=== PATIENT | female | born 1975 | race Hispanic/Latino ===

== ENCOUNTER 2024-12-07 11:21 | Emergency (ER) | payer OTHER, SELFPAY ==
--- OUTSIDE RECORDS SUMMARY | 2024-12-07 11:25 | XMS REPORT | Continuity of Care Document ---
Author Name Unknown Address [address] [facility] [address] [place] [address] [facility] thconnect Address [address] [facility] [address] [place] [address] Care Team Providers Care Railroad Passenger Agent Name Role Phone Paco Grimes MD Primary Care Physician [phone] Paco Grimes MD Attending Clinician [phone] PACO GRIMES Attending Clinician Unavailable GC_GCBZW_Kadiyala_S Attending Clinician Unavaila ble GC_GCBZW_Kadiyala_S Admitting Clinician Unavaila ble Payers Payer Name Policy Type Policy Number Effective Date Expirati on Date Source [employer] ACO COMM [id number] 2023 00:00:00 [employer] [id number] 2023 00:00:00 Problems Condition Name Condition Details Condition Category Status Onset Date Resolution Date Last Treatment Date Treating Clinician Comments Source Attention and concentrat ion deficit Attention and concentrat ion deficit Disease Active 07-07 00:00: 00 Fernie Osorio Epic Excessive and frequent menstruati on Excessive and frequent menstruati on Disease Active 07-07 00:00: 00 Memoria eliza Osorio Epic Pure hyperchole sterolemia Pure hyperchole sterolemia Disease Active 07-07 00:00: 00 Memoria eliza Osorio Epic Fatty liver Fatty liver Disease Active 07-07 00:00: 00 Memjenny Osorio Epic Mild episode of recurrent major depressive disorder Mild episode of recurrent major depressive disorder Disease Active 07-07 00:00: 00 Memjenny Osorio Epic Excessive menstruati on with irregular cycle Excessive Menstruati on with Irregular Cycle Problem Active 7-16 00:00: 00 [facility] Menopausal symptom Menopausal Symptom Problem Active 4-09 00:00: 00 [facility] Mass of right breast Mass of Right Breast Problem Active 4-09 00:00: 00 [facility] Abnormal findings on diagnostic imaging of breast Abnormal Findings on Diagnostic Imaging of Breast Problem Active 3-20 00:00: 00 [facility] Inconclusi ve mammograph y finding Inconclusi ve Mammograph y Finding Problem Active 2-21 00:00: 00 [facility] Vitamin D deficiency Vitamin D Deficiency Problem Active 1-25 00:00: 00 [facility] Anxiety Anxiety Problem Active 1-25 00:00: 00 [facility] Anxiety disorder Anxiety Disorder Problem Active 1-25 00:00: 00 [facility] Depressive disorder Depressive Disorder Problem Active 1-25 00:00: 00 [facility] Insomnia Insomnia Problem Active 1-25 00:00: 00 [facility] Menopausal syndrome Menopausal Syndrome Problem Active 1-25 00:00: 00 [facility] Joint pain Joint Pain Problem Active 1-25 00:00: 00 [facility] Fatigue Fatigue Problem Active 1-25 00:00: 00 [facility] Reduced libido Reduced Libido Problem Active 1-25 00:00: 00 [facility] Allergies, Adverse Reactions, Alerts Allergy Name Allergy Type Status Severity Reaction(s) Onset Date Inactive Date Treating Clinician Comments Source NO KNOWN ALLERGIE S SYSTEMIC Active MHEOUT NO KNOWN ALLERGIE S SYSTEMIC Active MHEOUT ALLERGIE S NOT ON FILE SYSTEMIC Active MHEOUT ALLERGIE S NOT ON FILE SYSTEMIC Active MHEOUT NO KNOWN ALLERGIE S SYSTEMIC Active MHEOUT NO KNOWN ALLERGIE S SYSTEMIC Active MHEOUT Social History Social Habit Start Date Stop Date Quantity Comments Source Gender identity 2024-01-11 15:49:04 Identifies as female gender (finding) [facility] [employer] ASSERTION Possible [facility] [employer] Sexual orientation [facility] [employer] Tobacco use and exposure 2024-07-07 00:00:00 2024-07-07 00:00:00 Smokeless tobacco non-user [facility] Alcoholic beverage intake 2024-07-07 00:00:00 2024-07-07 00:00:00 .14 /d [facility] History of Social function 2024-07-07 00:00:00 2024-07-07 00:00:00 [facility] Smoking Status Start Date Stop Date Source Tobacco smoking consumption unknown [facility] Never smoked tobacco [facility] Medications Ordered Medication Name Filled Medication Name Start Date Stop Date Current Medication? Ordering Clinician Indication Dosage Frequency Signature (SIG) Comments Components Source cholecalcif winnie (Vitamin D-3) 1.25 MG (47478 UT) capsule cholecalcif winnie (Vitamin D-3) 1.25 MG (59350 UT) capsule 2023-10 00:00: 00 01-03 23:59 :00 No [id number] 1.25mg Take 1 capsule by mouth 1 time each week. [facility] Vyvanse 60 MG capsule Vyvanse 60 MG capsule 2023-10 00:00: 00 11-03 23:59 :00 No [id number] 60mg Take 1 capsule by mouth every morning. [facility] Vyvanse 60 MG capsule Vyvanse 60 MG capsule 2023-10 00:00: 00 10-04 00:00 :00 No [id number] 60mg Take 1 capsule by mouth every morning. [facility] escitalopra m (Lexapro) 10 MG tablet escitalopra m (Lexapro) 10 MG tablet 2023-10 00:00: 00 11-04 23:59 :00 No [id number] 10mg QD Take 1 tablet by mouth 1 time each day. [facility] Vyvanse 60 MG capsule Vyvanse 60 MG capsule 07-07 00:00: 00 08-19 00:00 :00 No [id number] 60mg Take 1 capsule by mouth every morning. [facility] escitalopra m (Lexapro) 10 MG tablet escitalopra m (Lexapro) 10 MG tablet 07-07 00:00: 00 08-06 00:00 :00 No [id number] 10mg QD Take 1 tablet by mouth 1 time each day. Fernie Porter Vyvanse 60 MG capsule Vyvanse 60 MG capsule 8-06 00:00: 00 07-07 00:00 :00 No [id number] 60mg Take 1 capsule by mouth every morning. Fernie Porter escitalopra m (Lexapro) 10 MG tablet escitalopra m (Lexapro) 10 MG tablet 18 00:00: 00 07-07 00:00 :00 No [id number] 10mg QD Take 1 tablet by mouth 1 time each day. Fernie Porter Vyvanse 60 MG capsule Vyvanse 60 MG capsule 18 00:00: 00 05-25 00:00 :00 No [id number] 60mg Take 1 capsule by mouth every morning. Fernie Porter escitalopra m (Lexapro) 10 MG tablet escitalopra m (Lexapro) 10 MG tablet -14 00:00: 00 04-06 00:00 :00 No [id number] 10mg QD Take 1 tablet by mouth 1 time each day. Fernie Porter cholecalcif winnie (vitamin D3) 1,250 mcg (50,000 unit) capsule Take 1 capsule every week by oral route for 84 days. after prescriptio n runs out start over the counter vitamin D 3 5000 IU daily cholecalcif winnie (vitamin D3) 1,250 mcg (50,000 unit) capsule Take 1 capsule every week by oral route for 84 days. after prescriptio n runs out start over the counter vitamin D 3 5000 IU daily No 1capsul e(s) Q1W cholecalci ferol (vitamin D3) 1,250 mcg (50,000 unit) capsule Take 1 capsule every week by oral route for 84 days. after prescripti on runs out start over the counter vitamin D 3 5000 IU daily [facility] progesteron e micronized 100 mg capsule TAKE 1 CAPSULE BY MOUTH EVERY DAY AT BEDTIME progesteron e micronized 100 mg capsule TAKE 1 CAPSULE BY MOUTH EVERY DAY AT BEDTIME No 1capsul e(s) Q1D progestero ne micronized 100 mg capsule TAKE 1 CAPSULE BY MOUTH EVERY DAY AT BEDTIME [facility] Lyllana 0.1 mg/24 hr transdermal patch APPLY 1 PATCH TOPICALLY TO THE SKIN 2 TIMES A WEEK Lyllana 0.1 mg/24 hr transdermal patch APPLY 1 PATCH TOPICALLY TO THE SKIN 2 TIMES A WEEK No Lyllana 0.1 mg/24 hr transderma l patch APPLY 1 PATCH TOPICALLY TO THE SKIN 2 TIMES A WEEK [facility] Medical Vital Signs Vital Name Observation Time Observation Value Comments [facility] Systolic blood pressure 2024-10-04 08:31:00 120 mm[Hg] [facility] Diastolic blood pressure 2024-10-04 08:31:00 70 mm[Hg] [facility] Heart rate 2024-10-04 08:31:00 72 /min [facility] Body temperature 2024-10-04 08:31:00 36.17 [facility] Body height 2024-10-04 08:31:00 160 [facility] weight 2024-10-04 08:31:00 84.369 kg [facility] BMI 2024-10-04 08:31:00 32.95 kg/m2 [facility] O[facility] saturation in Arterial blood by Pulse oximetry 2024-10-04 08:31:00 98 /min [facility] Systolic blood pressure 2024-10-04 08:31:00 120 mm[Hg] [facility] Diastolic blood pressure 2024-10-04 08:31:00 70 mm[Hg] [facility] Heart rate 2024-10-04 08:31:00 72 /min [facility] Body temperature 2024-10-04 08:31:00 36.17 [facility] Body height 2024-10-04 08:31:00 160 cm [facility] Body weight 2024-10-04 08:31:00 84.369 kg [facility] BMI 2024-10-04 08:31:00 32.95 kg/m2 Ganesh rial [place] [facility] Oxygen saturation in Arterial blood by Pulse oximetry 2024-10-04 08:31:00 98 /min [facility] Systolic blood pressure 2024-07-07 15:38:00 120 mm[Hg] [facility] Diastolic blood pressure 2024-07-07 15:38:00 84 mm[Hg] [facility] Heart rate 2024-07-07 15:38:00 99 /min [facility] Body temperature 2024-07-07 15:38:00 36.22 [facility] Body height 2024-07-07 15:38:00 160 cm Ganesh riaeliza [facility] Body weight 2024-07-07 15:38:00 82.555 kg Ganesh rial [facility] BMI 2024-07-07 15:38:00 32.24 kg/m2 Ganesh rial [facility] Oxygen saturation in Arterial blood by Pulse oximetry 2024-07-07 15:38:00 98 /min [facility] Systolic blood pressure 2024-07-07 15:38:00 120 mm[Hg] [facility] Diastolic blood pressure 2024-07-07 15:38:00 84 mm[Hg] [facility] Heart rate 2024-07-07 15:38:00 99 /min [facility] Body temperature 2024-07-07 15:38:00 36.22 [facility] Body height 2024-07-07 15:38:00 160 [facility] Body weight 2024-07-07 15:38:00 82.555 kg Ganesh rial [facility] BMI 2024-07-07 15:38:00 32.24 kg/m2 Ganesh rial [facility] Oxygen saturation in Arterial blood by Pulse oximetry 2024-07-07 15:38:00 98 /min [facility] Systolic blood pressure 2024-04-06 09:11:00 136 mm[Hg] [facility] Diastolic blood pressure 2024-04-06 09:11:00 80 mm[Hg] [facility] Heart rate 2024-04-06 09:11:00 78 /min [facility] Body temperature 2024-04-06 09:11:00 36.39 [facility] Body height 2024-04-06 09:11:00 160 [facility] Body weight 2024-04-06 09:11:00 82.555 kg Ganesh rial [facility] BMI 2024-04-06 09:11:00 32.24 kg/m2 Ganesh rial [facility] Oxygen saturation in Arterial blood by Pulse oximetry 2024-04-06 09:11:00 98 /min [facility] Systolic blood pressure 2024-04-06 09:11:00 136 mm[Hg] [facility] Diastolic blood pressure 2024-04-06 09:11:00 80 mm[Hg] [facility] Heart rate 2024-04-06 09:11:00 78 /min [facility] Body temperature 2024-04-06 09:11:00 36.39 Ngoc [facility] Body height 2024-04-06 09:11:00 160 cm [facility] Body weight 2024-04-06 09:11:00 82.555 kg [facility] BMI 2024-04-06 09:11:00 32.24 kg/m2 [facility] Oxygen saturation in Arterial blood by Pulse oximetry 2024-04-06 09:11:00 98 /min [facility] Procedures Procedure Date / Time Performed Performing Clinician Source Complete Blood Count (no diff) [facility] Comprehensive Metabolic Panel [facility] TSH [facility] Vitamin D 25-Hydroxy [facility] CBC [facility] Comprehensive metabolic panel [facility] Vitamin D 25 hydroxy [facility] Complete Blood Count (no diff) [facility] Comprehensive Metabolic Panel [facility] Lipid Panel w/calculated LDL [facility] Vitamin D 25-Hydroxy [facility] Encounters Start Date/Time End Date/Time Encounter Type Admission Type Attending Clinicians Care Facility Care Department Encounter ID Source 2024-10-05 00:00:00 2024-12-05 20:33:34 Results Follow-Up Paco Grimes MD, PA 1.2.840.114 350.1.13.70 8.2.7.2.686 [id number] [facility] 2024-10-04 08:28:29 2024-10-04 08:52:40 Out[facility] Elect[id number] 2024-10-04 08:15:00 2024-10-04 08:52:40 Office Visit Paco Grimes MD, PA [id number] 350.1.13.70 8.2.7.2.686 [id number] Fernie Osorio [facility] 2024-07-09 00:00:00 2024-09-08 20:33:32 Results Follow-Up Paco Grimes MD, PA 1.2.840.114 350.1.13.70 8.2.7.2.686 [id number] [facility] 2024-08-19 00:00:00 2024-08-19 12:07:47 Refill Paco Grimes MD, PA [id number] 350.1.13.70 8.2.7.2.686 [id number] Fernie kay [facility] 2024-08-06 00:00:00 2024-08-06 12:04:53 Refill Paco Grimes MD, PA 1.2.840.114 350.1.13.70 8.2.7.2.686 [id number] [facility] 2024-07-07 15:37:28 2024-07-07 16:11:12 Outpatient Elective PACO GRIMES [facility] [id number] [facility] 2024-07-07 15:30:00 2024-07-07 16:11:12 Office Visit Paco Grimes MD, PA [id number] 350.1.13.70 8.2.7.2.686 [id number] [facility] 2024-05-25 00:00:00 2024-05-25 11:34:25 Refill Paco Grimes MD, PA 1.2.840.114 350.1.13.70 8.2.7.2.686 [id number] Fernie kay [facility] 2024-05-04 00:00:00 2024-05-04 00:00:00 JANEE Bergman: [address], [place] [address] , Ph. [facility] - GC_GCBZW_Linda Childs* [id number] [facility] 2024-04-06 09:05:54 2024-04-06 10:05:47 Outpatient Elective PACO GRIMES EOUT [facility] [id number] EOUT 2024-04-06 09:00:00 2024-04-06 10:05:47 Office Visit Paco Grimes MD, PA 1.2.840.114 350.1.13.70 8.2.7.2.686 [id number] [facility] 2024-03-31 00:00:00 2024-04-02 09:56:18 Refill Paco Grimes MD, PA [id number] 350.1.13.70 8.2.7.2.686 [id number] [facility] 2024-03-23 00:00:00 2024-03-23 00:00:00 JANEE Bergman: [address] [id number] , Ph. [facility] - GC_GCBZW_Linda gloria Amadeo* [id number] [facility] 2024-01-18 00:00:00 2024-01-18 00:00:00 Outpatient GC_GCBZW_Ka diyala_S [facility] [id number] [facility] 2023-12-22 00:00:00 2023-12-22 00:00:00 Outpatient GC_GCBZW_Ka diyala_S [facility] [id number] [facility] 2023-12-21 00:00:00 2023-12-21 00:00:00 Outpatient GC_GCBZW_Ka diyala_S PRIV PRIV [id number] [facility] 2023-11-14 00:00:00 2023-11-14 00:00:00 Outpatient GC_GCBZW_Ka diyala_S PRIV PRIV [id number] [facility] 2023-11-13 00:00:00 2023-11-13 00:00:00 Outpatient GC_GCBZW_Ka diyala_S [facility] [id number] [facility] 2023-11-12 00:00:00 2023-11-12 00:00:00 Outpatient [facility] [id number] [facility] Medical Notes Date/Time Note Provider Source [facility]63 20:43:37 [facility] HospitalCzukuet9193-45-69 19:09:25* [facility] HospitalZpdmblk3564-36-17 19:09:25* Naz Perez MA - 10/04/2024 8:15 AM PLASTER MACHINE OPERATOR Follow-up medical issues, medication refills , labs if needed TER MACHINE OPERATOR * Paco Grimes MD - 10/04/2024 8:15 AM PLASTER MACHINE OPERATOR Subjective Patient ID: Jenni Ordoeñz is a 49 y.o. female who presents for Follow-up and Med Refill. HPI: Here for a followup on her medical issues- Anxiety-takes the meds and doing ok. Vit D def-takes the meds and has good energy. ADD-continues to have issues with this and she has been doing well with the Vyvanse. Doing ok otherwise and has no new issues. Going through menopause now as per her ObGyn MD. Review of Systems Constitutional: Negative. HENT: Negative. Eyes: Negative. Respiratory: Negative. Cardiovascular: Negative. Gastrointestinal: Negative. Endocrine: Negative. Genitourinary: Negative. Musculoskeletal: Negative. Skin: Negative. Allergic/Immunologic: Negative. Neurological: Negative. Hematological: Negative. Psychiatric/Behavioral: Negative. Objective Physical Exam: Vitals and nursing note reviewed. Constitutional: Appearance: Normal appearance. HENT: Head: Normocephalic. Right Ear: Tympanic membrane normal. Left Ear: Tympanic membrane normal. Mouth/Throat: Mouth: Mucous membranes are moist. Eyes: Extraocular Movements: Extraocular movements intact. Pupils: Pupils are equal, round, and reactive to light. Cardiovascular: Rate and Rhythm: Normal rate and regular rhythm. Pulses: Normal pulses. Heart sounds: Normal heart sounds. Pulmonary: Effort: Pulmonary effort is normal. Breath sounds: Normal breath sounds. Abdominal: General: Abdomen is flat. Palpations: Abdomen is soft. Musculoskeletal: General: Normal range of motion. Cervical back: Normal range of motion. Skin: General: Skin is warm. Neurological: General: No focal deficit present. Mental Status: She is alert and oriented to person, place, and time. Psychiatric: Mood and Affect: Mood normal. Behavior: Behavior normal. Assessment & Plan Pure hypercholesterolemia Low chol diet and take meds Orders: Complete Blood Count (no diff) Comprehensive Metabolic Panel Vitamin D deficiency Take meds Orders: Vitamin D 25-Hydroxy Fatty liver Check labs Mild episode of recurrent major depressive disorder (HCC) Continue lexapro Attention deficit hyperactivity disorder (ADHD), predominantly inattentive type Orders:Vyvanse 60 MG capsule; Take 1 capsule by mouth every morning. Other fatigue Orders:Complete Blood Count (no diff) Comprehensive Metabolic Panel TSH As the patient's primary care provider we will add G2211 as an additional CPT code to account for the long-term, comprehensive, longitudinal care of complex medical conditions addressed during this visit and requiring review of historical medical records including, but not limited to, specialist records, laboratory testing, imaging, and coordination of care with specialists. [facility]2024-12-16 19:09:25Scheduled Orders Health Maintenance Due Date Last Done Comments CT Colonography 1975 Colonoscopy 1975 Colorectal Cancer Screening 1975 FIT-DNA 1975 FIT 1975 FOBT 1975 Sigmoidoscopy 1975 DTaP/Tdap/Td Vaccines (1 - Tdap) 1994 Hepatitis A Vaccines (1 of 2 - Risk 2-dose series) 1994 Hepatitis B Vaccines (1 of 3 - 19+ 3-dose series) 1994 Pap Smear 1996 Cervical Cancer Screening 2005 HPV/Cotest 2005 Mammogram 2015 Influenza Vaccine (#1) 2024 Annual Physical 11/13/2024 11/13/2023 HIB Vaccines Aged Out No longer eligi ble based on patient's age to complete this topic HPV Vaccines Aged Out No longer eligi ble based on patient's age to complete this topic IPV Vaccines Aged Out No longer eligi ble based on patient's age to complete this topic Meningococcal Vaccine Aged Out No binh terrence eligible based on patient's age to complete this topic Pneumococcal Vaccine: Pediat rics (0 to 5 Years) and At-Risk Patients (6 to 64 Years) Aged Out No longer eligible b ased on patient's age to complete this topic Rotavirus Vaccines Aged Out No longer eligible based on patient's age to complete this topic [facility] HospitalYzcxwdz2784-02-73 19:09:25 Diagnosis Pure hypercholesterolemia - Primary Vitamin D deficiency Fatty liver Other chronic nonalcoholic liver disease Mild episode of recurrent ma andrea depressive disorder (HCC) Attention deficit hyperactiv ity disorder (ADHD), predominantly inattentive type Other fatigue [facility] HospitalDolzfbi6976-30-93 19:09:25 [facility] HospitalQeuxuil4356-01-04 20:45:30 [facility] HospitalBfyocym4971-86-40 20:45:30 [facility] HospitalYbfkoap5014-38-87 12:07:53 [facility] HospitalIrtujpl1795-40-77 12:07:53 Diagnosis Attention deficit hyperactiv ity disorder (ADHD), predominantly inattentive type [facility] HospitalJpnwhal1232-24-28 12:07:53 [facility] HospitalUnsohga2149-57-40 12:05:00 [facility] HospitalWsmdzer7676-77-84 12:05:00 Diagnosis Moderate episode of recurren t major depressive disorder (HCC) Anxiety Anxiety state, unspecified [facility] HospitalVwfcebd9632-21-36 12:05:00 [facility] [id number] 19:28:50* Josep [id number] 19:28:50* Naz Perez MA - 07/07/2024 3:30 PM CDT Follow-up medical issues, medication refills , labs if needed * Paco Grimes MD - 07/07/2024 3:30 PM CDT Subjective Patient ID: Jenni Ordoñez is a 49 y.o. female who presents for Follow-up and Med Refill. HPI: Here for a followup on her medical issues- Anxiety-takes the meds and doing ok. Vit D def-takes the meds and has good energy. ADD-continues to have issues with this and she has been doing well with the Vyvanse. Doing ok otherwise and has no new issues. Going through menopause now as per her ObGyn MD. Review of Systems Constitutional: Negative. HENT: Negative. Eyes: Negative. Respiratory: Negative. Cardiovascular: Negative. Gastrointestinal: Negative. Endocrine: Negative. Genitourinary: Negative. Musculoskeletal: Negative. Skin: Negative. Allergic/Immunologic: Negative. Neurological: Negative. Hematological: Negative. Psychiatric/Behavioral: Negative. Objective Physical Exam: Vitals and nursing note reviewed. Constitutional: Appearance: Normal appearance. HENT: Head: Normocephalic. Right Ear: Tympanic membrane normal. Left Ear: Tympanic membrane normal. Mouth/Throat: Mouth: Mucous membranes are moist. Eyes: Extraocular Movements: Extraocular movements intact. Pupils: Pupils are equal, round, and reactive to light. Cardiovascular: Rate and Rhythm: Normal rate and regular rhythm. Pulses: Normal pulses. Heart sounds: Normal heart sounds. Pulmonary: Effort: Pulmonary effort is normal. Breath sounds: Normal breath sounds. Abdominal: General: Abdomen is flat. Palpations: Abdomen is soft. Musculoskeletal: General: Normal range of motion. Cervical back: Normal range of motion. Skin: General: Skin is warm. Neurological: General: No focal deficit present. Mental Status: She is alert and oriented to person, place, and time. Psychiatric: Mood and Affect: Mood normal. Behavior: Behavior normal. Assessment & Plan Pure hypercholesterolemia Orders: Lipid Panel w/calculated LDL Excessive and frequent menstruation Continue present plan and see the ObGyn Fatty liver Lose weight Vitamin D deficiency Orders:Vitamin D 25-Hydroxy Attention deficit hyperactivity disorder (ADHD), predominantly inattentive type Orders:Complete Blood Count (no diff) Comprehensive Metabolic Panel Vyvanse 60 MG capsule; Take 1 capsule by mouth every morning. Moderate episode of recurrent major depressive disorder (HCC) Orders:escitalopram (Lexapro) 10 MG tablet; Take 1 tablet by mouth 1 time each day. Anxiety Orders:escitalopram (Lexapro) 10 MG tablet; Take 1 tablet by mouth 1 time each day. [facility] HospitalAchfcbj6845-00-19 19:28:50Scheduled Orders Health Maintenance Due Date Last Done Comments CT Colonography 1975 Colonoscopy 1975 Colorectal Cancer Screening 1975 FIT-DNA 1975 FIT 1975 FOBT 1975 Sigmoidoscopy 1975 DTaP/Tdap/Td Vaccines (1 - Tdap) 1994 Hepatitis A Vaccines (1 of 2 - Risk 2-dose series) 1994 Hepatitis B Vaccines (1 of 3 - 19+ 3-dose series) 1994 Pap Smear 1996 Cervical Cancer Screening 2005 HPV/Cotest 2005 Mammogram 2015 Influenza Vaccine (#1) 2024 HIB Vaccines Aged Out No longer eligi ble based on patient's age to complete this topic HPV Vaccines Aged Out No longer eligi ble based on patient's age to complete this topic IPV Vaccines Aged Out No longer eligi ble based on patient's age to complete this topic Meningococcal Vaccine Aged Out No binh terrence eligible based on patient's age to complete this topic Pneumococcal Vaccine: Pediat rics (0 to 5 Years) and At-Risk Patients (6 to 64 Years) Aged Out No longer eligible b ased on patient's age to complete this topic Rotavirus Vaccines Aged Out No longer eligible based on patient's age to complete this topic [id number] 19:28:50 Diagnosis Pure hypercholesterolemia - Primary Excessive and frequent menstruation Excessive or frequent menstruation Fatty liver Other chronic nonalcoholic liver disease Mild episode of recurrent ma andrea depressive disorder (HCC) Vitamin D deficiency Attention deficit hyperactiv ity disorder (ADHD), predominantly inattentive type Moderate episode of recurren t major depressive disorder (HCC) Anxiety Anxiety state, unspecified [id number] 19:28:50 [place] [id number] 11:34:32 [place] [id number] 11:34:32 Diagnosis Attention deficit hyperactiv ity disorder (ADHD), predominantly inattentive type [facility] HospitalShwuyir1185-45-09 11:34:32 [facility] [id number] 20:30:26* [facility] [id number] 20:30:26* Naz Perez MA - 04/06/2024 9:00 AM CDT Follow-up medical issues, medication refills , labs if needed * Paco Grimes MD - 04/06/2024 9:00 AM CDT Subjective Patient ID: Jenni Ordoñez is a 49 y.o. female who presents for Follow-up (Medical issues ) and Med Refill (Labs ). HPI Here for a followup on her medical issues- Anxiety-takes the meds and doing ok. Vit D def-takes the meds and has good energy. ADD-continues to have issues with this and she has been doing well with the Vyvanse. Doing ok otherwise and has no new issues. Going through menopause now as per her ObGyn MD. Review of Systems Constitutional: Negative. HENT: Negative. Eyes: Negative. Respiratory: Negative. Cardiovascular: Negative. Gastrointestinal: Negative. Endocrine: Negative. Genitourinary: Negative. Musculoskeletal: Negative. Skin: Negative. Allergic/Immunologic: Negative. Neurological: Negative. Hematological: Negative. Psychiatric/Behavioral: Negative. Objective Physical Exam Vitals and nursing note reviewed. Constitutional: Appearance: Normal appearance. HENT: Head: Normocephalic. Right Ear: Tympanic membrane normal. Left Ear: Tympanic membrane normal. Mouth/Throat: Mouth: Mucous membranes are moist. Eyes: Extraocular Movements: Extraocular movements intact. Pupils: Pupils are equal, round, and reactive to light. Cardiovascular: Rate and Rhythm: Normal rate and regular rhythm. Pulses: Normal pulses. Heart sounds: Normal heart sounds. Pulmonary: Effort: Pulmonary effort is normal. Breath sounds: Normal breath sounds. Abdominal: General: Abdomen is flat. Palpations: Abdomen is soft. Musculoskeletal: General: Normal range of motion. Cervical back: Normal range of motion. Skin: General: Skin is warm. Neurological: General: No focal deficit present. Mental Status: She is alert and oriented to person, place, and time. Psychiatric: Mood and Affect: Mood normal. Behavior: Behavior normal. Assessment & Plan Attention deficit hyperactivity disorder (ADHD), predominantly inattentive type Orders: CBC Comprehensive metabolic panel Vyvanse 60 MG capsule; Take 1 capsule by mouth every morning. Moderate episode of recurrent major depressive disorder (HCC) Orders: CBC Comprehensive metabolic panel escitalopram (Lexapro) 10 MG tablet; Take 1 tablet by mouth 1 time each day. Vitamin D deficiency Orders: Vitamin D 25 hydroxy [facility] [id number] 20:30:26Scheduled Orders Health Maintenance Due Date Last Done Comments CT Colonography 1975 Colonoscopy 1975 Colorectal Cancer Screening 1975 FIT-DNA 1975 FIT 1975 FOBT 1975 Sigmoidoscopy 1975 DTaP/Tdap/Td Vaccines (1 - Tdap) 1994 Hepatitis A Vaccines (1 of 2 - Risk 2-dose series) 1994 Hepatitis B Vaccines (1 of 3 - 19+ 3-dose series) 1994 Pap Smear 1996 Cervical Cancer Screening 2005 HPV/Cotest 2005 Mammogram 2015 Influenza Vaccine (Season Ended) 2024 Respiratory Syncytial Virus (RSV) or >=60 (1 - 1-dose 60+ series) 2035 HIB Vaccines Aged Out No longer eligi ble based on patient's age to complete this topic HPV Vaccines Aged Out No longer eligi ble based on patient's age to complete this topic IPV Vaccines Aged Out No longer eligi ble based on patient's age to complete this topic Meningococcal Vaccine Aged Out No binh terrence eligible based on patient's age to complete this topic Pneumococcal Vaccine: Pediat rics (0 to 5 Years) and At-Risk Patients (6 to 64 Years) Aged Out No longer eligible b ased on patient's age to complete this topic Rotavirus Vaccines Aged Out No longer eligible based on patient's age to complete this topic [facility] [id number] 20:30:26 Diagnosis Attention deficit hyperactiv ity disorder (ADHD), predominantly inattentive type - Primary Moderate episode of recurren t major depressive disorder (HCC) Vitamin D deficiency Anxiety Anxiety state, unspecified [facility] [id number] 20:30:26 [facility] HospitalJmzjhus1282-64-75 09:56:28* [facility] [id number] 09:56:28Upcoming Encounters Health Maintenance Due Date Last Done Comments CT Colonography 1975 Colonoscopy 1975 Colorectal Cancer Screening 1975 FIT-DNA 1975 FIT 1975 FOBT 1975 Sigmoidoscopy 1975 DTaP/Tdap/Td Vaccines (1 - Tdap) 1994 Hepatitis A Vaccines (1 of 2 - Risk 2-dose series) 1994 Hepatitis B Vaccines (1 of 3 - 19+ 3-dose series) 1994 Pap Smear 1996 Cervical Cancer Screening 2005 HPV/Cotest 2005 Mammogram 2015 Influenza Vaccine (Season Ended) 2024 Respiratory Syncytial Virus (RSV) or >=60 (1 - 1-dose 60+ series) 2035 HIB Vaccines Aged Out No longer eligi ble based on patient's age to complete this topic HPV Vaccines Aged Out No longer eligi ble based on patient's age to complete this topic IPV Vaccines Aged Out No longer eligi ble based on patient's age to complete this topic Meningococcal Vaccine Aged Out No binh terrence eligible based on patient's age to complete this topic Pneumococcal Vaccine: Pediat rics (0 to 5 Years) and At-Risk Patients (6 to 64 Years) Aged Out No longer eligible b ased on patient's age to complete this topic Rotavirus Vaccines Aged Out No longer eligible based on patient's age to complete this topic [facility] HospitalPwjnatp6401-74-71 09:56:28 Diagnosis Anxiety - Primary Anxiety state, unspecified [facility] HospitalEcdjplg0010-13-64 11:10:52 She has an appt will do then [facility]
[2024-12-07] MEDS ORDERED: HYDROMORPHONE HCL 1 MG/ML INJ ONE ×2 (11:55→14:18)
[2024-12-07] MEDS ORDERED: ONDANSETRON 4 MG/2 ML VIAL ONE (11:55)
[2024-12-07] MEDS ORDERED: NA CHLORIDE 0.9% 1,000 ML ONE (11:55)
[2024-12-07 12:14] LABS: Absolute Lymphocytes (CBC) 1.7 K/uL (0.7-4.9); Absolute Neutrophil 11.5 K/uL (1.8-8.0); Basophils % 0.2 % (0-1.3); Eosinophils % 0.2 % (0-4.4); Hematocrit 39.9 % (36.0-45.0); Hemoglobin 13.7 g/dL (12.0-15.0); Lymphocytes % 11.8 % (15.3-44.8); MCH 28.4 pg (27.0-35.0); MCHC 34.4 g/dL (32.0-36.0); MCV 82.7 fL (80-100); MPV 8.2 fL (7.6-11.3); Neutrophils % 80.8 % (41.7-73.7); Platelets 291 thou/uL (152-406); RBC Red Blood Cell Count 4.82 M/uL (3.86-4.86); Red Cell Distribution Width 15.3 % (12.1-15.2)
[2024-12-07 12:24] LABS: Albumin 3.8 g/dL (3.4-5.0); Anion Gap 6.5 mEq/L (5.0-15.0); Bilirubin Total 0.5 mg/dL (0.2-1.0); Globulin 3.9 g/dL (2.3-3.5); Potassium 3.5 mEq/L (3.5-5.1); Protein, Total 7.7 g/dL (6.4-8.2)
[2024-12-07 14:00] LABS: Specific Gravity 1.026 (1.005-1.030)
--- NOTE | 2024-12-07 14:03 | RAD REPORT ---
EXAMINATION: CT ABDOMEN AND PELVIS WITH CONTRAST CLINICAL INDICATION: LLQ and left flank pain TECHNIQUE: CT abdomen and pelvis was performed, after the administration of IV contrast, as per [facility]. Axial, sagittal and coronal reconstructions were obtained. One or more of the following dose reduction techniques were used: Automated exposure control, adjustment of the mA and k V according to patient size, and iterative reconstruction. Unless otherwise specified, incidental findings do not require dedicated imaging follow-up. COMPARISON: No prior exam. FINDINGS: LOWER CHEST: The visualized lung bases are clear. Small hiatal hernia. LIVER: Mild fatty liver is present. No focal lesion or biliary dilatation is seen. Cholecystectomy clips. SPLEEN: Normal size. No focal lesion. PANCREAS: No mass, ductal dilation, or ashvin-pancreatic fluid. ADRENALS: Normal; no mass. KIDNEYS: 5 mm stone proximal left ureter resulting in [id number] left-sided hydronephrosis. No right-sided stone or hydronephrosis evident. GASTROINTESTINAL TRACT: No evidence of free air, significant intra-abdominal free fluid, bowel obstru ction or abscess. APPENDIX: Normal appendix. LYMPH NODES: No lymphadenopathy. MUSCULOSKELETAL: Mild lower lumbar degenerative changes. ADDITIONAL FINDINGS: None. IMPRESSION: 5 mm stone proximal left ureter resulting in [id number] left-sided hydronephrosis.
[2024-12-07 14:05] LABS: Specific Gravity 1.026 (1.005-1.030); Urine Bacteria None Seen /HPF (<20); Urine Bilirubin NEGATIVE (Negative); Urine Blood 3+ (OVER) (Negative); Urine Clarity Extremely Turbid (Clear); Urine Color Yellow (Yellow); Urine Culture Reflex Order NOT NEEDED; Urine Glucose NEGATIVE (Negative); Urine Ketones 1+ (Negative); Urine Microscopic Reflex YN ORDER UMIC; Urine Mucus Slight /HPF (None Seen); Urine Nitrite NEGATIVE (Negative); Urine Protein TRACE (Negative); Urine RBC >50 /HPF (None Seen); Urine Urobilinogen Normal (Normal); Urine WBC <5 /HPF (<5); Urine pH 5.5 (5.0-7.0)
--- NOTE | 2024-12-07 14:31 | ER ---
Nurse's Notes [facility] Name: Janice Rashid Age: 49 yrs Sex: Female : 1975 Arrival Date: 12/07/2024 Time: 11:21 Bed 13 Private MD: Diagnosis: Ureterolithiasis, kidney stone, left flank pain Presentation: 12/07 12:05 Chief complaint: Chief complaint: Patient states: left sided flank pain and lower ld1 abdominal pain. N/V. 12:05 Method Of Arrival: Ambulatory ld1 12:15 Coronavirus screen: At this time, the client does not indicate any symptoms associated ld1 with coronavirus-19. Ebola Screen: No symptoms or risks identified at this time. Initial Sepsis Screen: Does the patient meet any 2 criteria? No. Patient's initial sepsis screen is negative. Does the patient have a suspected source of infection? No. Patient's initial sepsis screen is negative. Risk Assessment: Do you want to hurt yourself or someone else? Patient reports no desire to harm self or others. Onset of symptoms was December 07, 2024 at 12:15. 12:15 Acuity: SANDRA 3 ld1 Triage Assessment: 12:15 General: Appears in no apparent distress. uncomfortable, Behavior is calm, cooperative, ld1 appropriate for age. Pain: Complains of pain in left low back and left lower quadrant Pain does not radiate. Pain currently is 8 out of 10 on a pain scale. Quality of pain is described as throbbing, Pain began suddenly. EENT: No signs and/or symptoms were reported regarding the EENT system. Neuro: Level of Consciousness is awake, alert, obeys commands, Oriented to person, place, time, situation. Cardiovascular: Capillary refill < 3 seconds Patient's skin is warm and dry. Respiratory: Airway is patent Respiratory effort is even, unlabored. GI: Abdomen is round non-distended. : No signs and/or symptoms were reported regarding the genitourinary system. Derm: No signs and/or symptoms reported regarding the dermatologic system. Musculoskeletal: No signs and/or symptoms reported regarding the musculoskeletal system. 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 - Infectious Disease History:: Denies. - Social history:: Smoking status: Patient denies any tobacco usage or history of. Screenin:42 [facility] ED Fall Risk Assessment (Adult) History of falling in the last 3 months, kj2 including since admission No falls in past 3 months (0 pts) Confusion or Disorientation No (0 pts) Intoxicated or Sedated No (0 pts) Impaired Gait No (0 pts) Mobility Assist Device Used No (0 pt) Altered Elimination No (0 pt) Score/Fall Risk Level 0 - 2 = Low Risk Maintained a safe environment, Hourly rounding (assess needs \T\ fall precautionary measures) done. Abuse screen: Denies threats or abuse. Denies injuries from another. Nutritional screening: No deficits noted. Tuberculosis screening: No symptoms or risk factors identified. Assessment: 12:05 General: Appears uncomfortable, Behavior is calm, cooperative. Pain: Complains of pain kj2 in abdomen and left lower quadrant and left low back Pain currently is 6 out of 10 on a pain scale. Neuro: Level of Consciousness is awake, alert, obeys commands, Oriented to person, place, time, situation. Cardiovascular: Patient's skin is warm and dry. Respiratory: Airway is patent Respiratory effort is even, unlabored. GI: Abdomen is non-distended. : Reports cramping, in left flank(s). 13:06 Reassessment: Patient appears in no apparent distress at this time. Patient and/or kj2 family updated on plan of care and expected duration. Pain level reassessed. Patient is alert, oriented x 3, equal unlabored respirations, skin warm/dry/pink. 13:49 Reassessment: Patient appears in no apparent distress at this time. Patient and/or kj2 family updated on plan of care and expected duration. Pain level reassessed. Patient is alert, oriented x 3, equal unlabored respirations, skin warm/dry/pink. 14:49 Reassessment: Patient appears in no apparent distress at this time. Patient and/or kj2 family updated on plan of care and expected duration. Pain level reassessed. Patient is alert, oriented x 3, equal unlabored respirations, skin warm/dry/pink. 14:50 GI: Bowel sounds present X 4 quads. Abd is non tender. kj2 Vital Signs: 12:05 BP 155 / 83; Pulse 69; Resp 18; Pulse Ox 99% on R/A; Pain 9/10; ld1 12:15 BP 152 / 87; Pulse 67; Resp 18; Pulse Ox 97% on R/A; ld1 13:06 BP 163 / 93; Pulse 78; Resp 20; Pulse Ox 100% on R/A; kj2 13:49 BP 148 / 91; Pulse 80; Resp 20; Pulse Ox 100% on R/A; kj2 14:49 BP 145 / 75; Pulse 74; Resp 18; Temp 98; Pulse Ox 100% on R/A; kj2 12:05 Pain Scale: Adult ld1 ED Course: 11:23 Patient arrived in ED. im 11:25 Skip Wheeler MD is Attending Physician. sp3 11:42 Coco Reynolds, ANNMARIE is Primary Nurse. ld1 12:05 Patient has correct armband on for positive identification. Bed in low position. Call kj2 light in reach. Side rails up X 1. Adult w/ patient. Provided Education on: call light. 12:15 Triage completed. ld1 12:15 Arm band placed on right wrist. ld1 12:40 Laurel Pruett, ANNMARIE is Primary Nurse. kj2 13:01 Radiology exam delayed due to test not completed at this time. mw3 13:52 CT Abd/Pelvis - IV Contrast Only In Process Unspecified. EDMS 14:29 Henry Mercado MD is Referral Physician. sp3 14:50 No provider procedures requiring assistance completed. IV discontinued, intact, kj2 bleeding controlled, No redness/swelling at site. Pressure dressing applied. Administered Medications: 12:04 Drug: Ondansetron IVP 4 mg IVP once; over 2 minutes Route: IVP; Site: left antecubital; ld1 13:57 Follow up: Response: No adverse reaction kj2 12:04 Drug: NS 0.9% IV 1000 ml IV at 1 bolus Per protocol; to be given as a bolus over 60 ld1 minutes Route: IV; Rate: 1 bolus; Site: left antecubital; 13:57 Follow up: IV Status: Completed infusion; IV Intake: 1000ml kj2 12:04 Drug: HYDROmorphone IVP 1 mg IVP once Route: IVP; Site: left antecubital; ld1 13:56 Follow up: Response: No change in condition kj2 14:20 Drug: HYDROmorphone IVP 1 mg IVP once Route: IVP; Site: left antecubital; kj2 14:51 Follow up: Response: No adverse reaction kj2 Medication: 14:50 VIS not applicable for this client. kj2 Intake: 13:57 IV: 1000ml; Total: 1000ml. kj2 Outcome: 14:30 Discharge ordered by . sp3 14:50 Discharged to home ambulatory, with family, kj2 14:50 Condition: stable 14:50 Discharge instructions given to patient, Instructed on discharge instructions, follow up and referral plans. Demonstrated understanding of instructions, follow-up care, medications, Prescriptions given X 4, 15:02 Patient left the ED. kj2 Signatures: Dispatcher [employer] EDMS Dayana Ayers mw3 Coco Reynolds RN RN ld1 Skip Wheeler MD MD sp3 Cindy Rausch Krystal, ANNMARIE RN kj2 Corrections: (The following items were deleted from the chart) 12:15 12:05 Chief complaint: ld1 ld1
--- NOTE | 2024-12-07 14:31 | EDPHYS ---
Physician Documentation [facility] Name: Janice Rashid Age: 49 yrs Sex: Female : 1975 Arrival Date: 12/07/2024 Time: 11:21 Bed 13 Private MD: ED Physician Skip Wheeler HPI: 12/07 11:45 This 49 yrs old Female presents to ER via Unassigned with complaints of sp3 Abdominal Pain, Vomiting. 11:45 49-year-old female with history of diverticulitis that presents to the ED with left sp3 lower quadrant abdominal pain for the last 12 hours or so radiating to the left flank. She denies any right-sided pain, epigastric pain, chest pain, shortness of breath, dysuria, urinary frequency, visualized hematuria, syncope, or any other signs or symptoms on ROS at this time. She does endorse nausea and vomiting x 2 with clear/yellow emesis.. 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 - Infectious Disease History:: Denies. - Social history:: Smoking status: Patient denies any tobacco usage or history of. ROS: 11:45 Constitutional: Negative for fever, chills, and weight loss, Eyes: Negative for injury, sp3 pain, redness, and discharge, ENT: Negative for injury, pain, and discharge, Neck: Negative for injury, pain, and swelling, Cardiovascular: Negative for chest pain, palpitations, and edema, Respiratory: Negative for shortness of breath, cough, wheezing, and pleuritic chest pain, : Negative for injury, bleeding, discharge, and swelling, MS/Extremity: Negative for injury and deformity, Skin: Negative for injury, rash, and discoloration, Neuro: Negative for headache, weakness, numbness, tingling, and seizure, Psych: Negative for depression, anxiety, suicide ideation, homicidal ideation, and hallucinations, Allergy/Immunology: Negative for hives, rash, and allergies, Endocrine: Negative for neck swelling, polydipsia, polyuria, polyphagia, and marked weight changes, Hematologic/Lymphatic: Negative for swollen nodes, abnormal bleeding, and unusual bruising, 11:45 All other systems are negative, Exam: 11:46 Constitutional: This is a well developed, well nourished patient who is awake, alert, sp3 and in no acute distress. Head/Face: Normocephalic, atraumatic. Eyes: Pupils equal round and reactive to light, extra-ocular motions intact. Lids and lashes normal. Conjunctiva and sclera are non-icteric and not injected. Cornea within normal limits. Periorbital areas with no swelling, redness, or edema. ENT: Nares patent. No nasal discharge, no septal abnormalities noted. External auditory canals are clear. Oropharynx with no redness, swelling, or masses, exudates, or evidence of obstruction, uvula midline. Mucous membranes moist. Neck: Trachea midline, no thyromegaly or masses palpated, and no cervical lymphadenopathy. Supple, full range of motion without nuchal rigidity, or vertebral point tenderness. No Meningismus. Chest/axilla: Normal chest wall appearance and motion. Nontender with no deformity. No lesions are appreciated. Cardiovascular: Regular rate and rhythm with a normal S1 and S2. No gallops, murmurs, or rubs. Normal PMI, no JVD. No pulse deficits. Respiratory: Lungs have equal breath sounds bilaterally, clear to auscultation and percussion. No rales, rhonchi or wheezes noted. No increased work of breathing, no retractions or nasal flaring. Back: No spinal tenderness. No costovertebral tenderness. Full range of motion. Skin: Warm, dry with normal turgor. Normal color with no rashes, no lesions, and no evidence of cellulitis. MS/ Extremity: Pulses equal, no cyanosis. Neurovascular intact. Full, normal range of motion. Neuro: Awake and alert, GCS 15, oriented to person, place, time, and situation. Cranial nerves II-XII grossly intact. Motor strength 5/5 in all extremities. Sensory grossly intact. Cerebellar exam normal. Normal gait. Psych: Awake, alert, with orientation to person, place and time. Behavior, mood, and affect are within normal limits. 11:46 Abdomen/GI: Left lower quadrant abdominal pain to palpation moderate in nature without peritoneal signs, rebound or guarding. Left CVA tenderness also noted., Vital Signs: 12:05 BP 155 / 83; Pulse 69; Resp 18; Pulse Ox 99% on R/A; Pain 9/10; ld1 12:15 BP 152 / 87; Pulse 67; Resp 18; Pulse Ox 97% on R/A; ld1 13:06 BP 163 / 93; Pulse 78; Resp 20; Pulse Ox 100% on R/A; kj2 13:49 BP 148 / 91; Pulse 80; Resp 20; Pulse Ox 100% on R/A; kj2 14:49 BP 145 / 75; Pulse 74; Resp 18; Temp 98; Pulse Ox 100% on R/A; kj2 12:05 Pain Scale: Adult ld1 MDM: 11:40 Medical Screening Exam initiated sp3 11:46 Data reviewed: vital signs, nurses notes, lab test result(s), radiologic studies. ED sp3 course: 49-year-old female with left lower quadrant abdominal pain. Differential diagnosis includes diverticulitis, kidney stone/ureterolithiasis spectrum, UTI/pyelonephritis spectrum, other bowel pathology, functional abdominal pain, among others. I am not highly suspicious of aortic pathology, sepsis, shock or any other critical process. Workup include CT scan of the abdomen pelvis with IV contrast, general labs, urine analysis and general supportive care with IV pain and nausea medication and IV fluids. Disposition pending workup and patient course.. 14:28 ED course: Patient with 5 mm kidney stone on the left side. WBC count of 14,000. No sp3 WBCs on urine. We will discharge on tramadol, diclofenac and Flomax. Patient is afebrile.. 14:29 ED course: Patient does have esterase so we will cover with Bactrim prophylactically.. sp3 12/07 11:43 Order name: CBC with Diff; Complete Time: 14:21 sp3 12/07 11:43 Order name: CMP; Complete Time: 14:21 sp3 12/07 11:43 Order name: Lipase; Complete Time: 14:21 sp3 12/07 11:43 Order name: Test, Urine; Complete Time: 14:21 sp3 12/07 11:43 Order name: Urinalysis w/ reflexes; Complete Time: 14:21 sp3 12/07 11:43 Order name: CT Abd/Pelvis - IV Contrast Only; Complete Time: 14:21 sp3 12/07 11:43 Order name: IV Saline Lock; Complete Time: 12:04 sp3 12/07 11:43 Order name: Labs collected and sent; Complete Time: 12:04 sp3 12/07 11:43 Order name: NPO; Complete Time: 11:44 sp3 Administered Medications: 12:04 Drug: Ondansetron IVP 4 mg IVP once; over 2 minutes Route: IVP; Site: left antecubital; ld1 13:57 Follow up: Response: No adverse reaction kj2 12:04 Drug: NS 0.9% IV 1000 ml IV at 1 bolus Per protocol; to be given as a bolus over 60 ld1 minutes Route: IV; Rate: 1 bolus; Site: left antecubital; 13:57 Follow up: IV Status: Completed infusion; IV Intake: 1000ml kj2 12:04 Drug: HYDROmorphone IVP 1 mg IVP once Route: IVP; Site: left antecubital; ld1 13:56 Follow up: Response: No change in condition kj2 14:20 Drug: HYDROmorphone IVP 1 mg IVP once Route: IVP; Site: left antecubital; kj2 14:51 Follow up: Response: No adverse reaction kj2 Disposition Summary: 12/07/24 14:30 Discharge Ordered Notes: Location: Home sp3 Condition: Stable sp3 Diagnosis - Ureterolithiasis, kidney stone, left flank pain sp3 Followup: sp3 - With: Henry Mercado MD - When: Upon discharge from the Emergency Department - Reason: Recheck today's complaints Discharge Instructions: - Discharge Summary Sheet sp3 - Kidney Stones sp3 Forms: - Medication Reconciliation Form sp3 - Antibiotic Education sp3 - Prescription Opioid Use sp3 - Patient Portal Instructions sp3 - Leadership Thank You Letter sp3 Prescriptions: - Flomax 0.4 mg Oral capsule - take 1 capsule ORAL route every 24 hours; 5 capsule; Refills: 0, Product sp3 Selection Permitted - Diclofenac Sodium 75 mg Oral Tablet Sustained Release - take 1 tablet ORAL route 2 times per day; 30 tablet; Refills: 0, Product sp3 Selection Permitted - Tramadol 50 mg Oral Tablet - take 1 tablet ORAL route every 8 hours as needed; 12 tablet; Refills: 0, sp3 Product Selection Permitted - Bactrim DS 800-160 mg Oral Tablet - take 1 tablet ORAL route every 12 hours for 7 days; 14 tablet; Refills: 0, sp3 Product Selection Permitted Signatures: Dispatcher [employer] Coco Dale RN RN ld1 Skip Wheeler MD MD sp3 Laurel Pruett RN RN kj2 Corrections: (The following items were deleted from the chart) 11:44 11:44 Abdomen Pelvis W Con+CT.RAD.BRZ ordered. EDMS EDMS
[2024-12-07 16:21] VITALS: O2SAT 100
[2024-12-07 16:23] VITALS: BP 145/75; TEMP 98
== END 2024-12-07 15:02 | disposition home or self-care (01) ==
LOC: ER 11:21
DX: N20.2 Calculus of kidney with calculus of ureter (principal)
CPT/HCPCS: 85025; 81001; 36415; 81025; 83690; 80053; 74177; Q9967; J1171 ×2; J2405; J7030